=== PATIENT | male | born 2000 | race Caucasian/White ===

== ENCOUNTER 2021-01-01 18:18 | Emergency (ER) | payer OTHER ==
[2021-01-01 18:28] VITALS: BP 115/71; PULSE 81; TEMP 98.2; BMI 19.0
[2021-01-01] MEDS ORDERED: ACETAMINOPHEN 325 MG TABLET (FP) PO ONE (19:07)
[2021-01-01] MEDS ORDERED: ACETAMINOPHEN 325 MG TABLET (FP) ONE (19:16)
== END 2021-01-01 19:19 | disposition home or self-care (01) ==
LOC: FER 18:18
DX: R07.9 Chest pain, unspecified (principal)
CPT/HCPCS: 93005; 99283-25